=== PATIENT | male | born 1980 | race Caucasian/White ===

== ENCOUNTER 2017-08-16 13:11 | Emergency (ER) | payer OTHER ==
[~2017-08-16] VITALS: Ht 177.8 cm; Wt 68.0 kg
--- NOTE | 2017-08-16 13:26 | ED GI/GU/ABDOMINAL COMPLAINT ---
History of Present Illness General Chief Complaint: Nausea, Vomiting, Diarrhea Stated Complaint: SENT BY WALK IN FOR VOMITING Source: patient Exam Limitations: no limitations Vital Signs & Intake/Output Vital Signs & Intake/Output Vital Signs Date Time Temp Pulse Resp B/P B/P Pulse O2 O2 Flow FiO2 Mean Ox Delivery Rate 08/16 1606 98.7 69 18 122/84 95 Room Air 08/16 1319 96.5 80 18 154/94 96 Room Air Allergies Uncoded Allergies: HAYFEVER (04/08/12) Reconcile Medications Dicyclomine HCl 10 MG CAPSULE 1 CAP PO TID pain Purdy Carbonate 300 MG CAPSULE 1 CAP PO TID MENTAL HEALTH (Reported) Methylphenidate Hydrochloride (Ritalin) 10 MG TABLET 1 TAB PO BID MENTAL HEALTH (Reported) Ondansetron (Zofran Odt) 4 MG TAB.RAPDIS 1 TAB SL TID nausea Promethazine HCl 25 MG TABLET 1 TAB PO Q6P PRN nausea Triage Note: PT SENT BY WALK IN CLINIC WENT TO CLINIC ON SATURDAY AND WAS PUT ON ABX FOR EYE INFECTION. PT STATES HE WENT AGAIN TODAY FOR N/V/D SINCE YESTERDAY AND WAS SENT TO ED. Triage Nurses Notes Reviewed? yes Onset: Abrupt Duration: day(s): (4) Timing: recent history Location: right upper quadrant Radiation: no radiation HPI: 37-year-old male sent him walking clinic for further evaluation. 4 days ago this past Saturday he was seen for infection in his left eye. Patient was placed in Augmentin. Later that night he started to experience fever chills body aches with associated vomiting. He then started to experience diarrhea. The symptoms have been intermittent and persistent for the last few days. He went back to the walk-in clinic. He was then sent here for further evaluation. Denies any fever. He admits to some intermittent right upper abdominal pain. Denies any other associated symptoms. Comes in for further evaluation. s. Past History Travel History Traveled to [place] past 21 day No Medical History Any Pertinent Medical History? see below for history Psychiatric: bipolar disease Surgical History Surgical History: hernia repair-inguinal Psychosocial History What is your primary language Kittitian Tobacco Use: Current Daily Use Daily Tobacco Use Amount/Type: => 5 Cigarettes daily ETOH Use: heavy use Illicit Drug Use: marijuana Family History Hx Contributory? No Review of Systems Review of Systems Constitutional: Reports: see HPI. EENTM: Reports: no symptoms. Respiratory: Reports: no symptoms. Cardiovascular: Reports: no symptoms. GI: Reports: see HPI. Genitourinary: Reports: no symptoms. Musculoskeletal: Reports: no symptoms. Skin: Reports: no symptoms. Neurological/Psychological: Reports: no symptoms. Hematologic/Endocrine: Reports: no symptoms. Immunologic/Allergic: Reports: no symptoms. All Other Systems: Reviewed and Negative Physical Exam Physical Exam General Appearance: well developed/nourished, alert, awake, mild distress Head: atraumatic, normal appearance Eyes: Bilateral: normal appearance. Ears, Nose, Throat, Mouth: hearing grossly normal, moist mucous membrane Neck: normal inspection Respiratory: normal breath sounds, no respiratory distress Cardiovascular: regular rate/rhythm Gastrointestinal: soft, NEGATIVE HAQ'S Back: normal inspection Extremities: normal range of motion Neurologic/Psych: awake, alert, oriented x 3, normal gait Skin: intact, normal color Core Measures ACS in differential dx? No Sepsis Present: No Sepsis Focused Exam Completed? No Progress Differential Diagnosis: appendicitis, biliary colic, cholecystitis, diverticulitis, gastritis, hepatitis, hernia, ischemic bowel, inflamm bowel dis, pancreatitis, peptic ulcer, PUD/GERD, perforated viscous, SBO Plan of Care: Orders Procedure Date/time Status Add-on Test (ER Only) 08/16 1519 Active EKG 08/16 1519 Active RAPID VIRAL INFLUENZA A 08/16 1442 Complete TROPONIN LEVEL 08/16 1340 Complete URINALYSIS 08/16 1325 Complete LIPASE 08/16 1325 Complete LITHIUM 08/16 1325 Complete LACTIC ACID 08/16 1325 Complete COMPREHENSIVE METABOLIC PANEL 08/16 1325 Complete CBC WITHOUT DIFFERENTIAL 08/16 1325 Complete Laboratory Tests 08/16/17 1625: Lactic Acid Cancelled 08/16/17 1340: Anion Gap 15, Estimated GFR > 60, BUN/Creatinine Ratio 20.0, Glucose 136 H, Lactic Acid 1.1, Calcium 9.7, Total Bilirubin 0.6, AST 23, ALT 46, Alkaline Phosphatase 53, Troponin I < 0.01, Total Protein 7.2, Albumin 4.5, Globulin 2.7, Albumin/Globulin Ratio 1.7, Lipase 29, CBC w Diff NO MAN DIFF REQ, RBC 5.82, MCV 76.6 L, MCH 24.9 L, MCHC 32.5 L, RDW 13.5, MPV 7.8, Gran % 78.6 H, Lymphocytes % 14.7 L, Monocytes % 6.1, Eosinophils % 0.3, Basophils % 0.3, Absolute Granulocytes 6.1, Absolute Lymphocytes 1.1 L, Absolute Monocytes 0.5, Absolute Eosinophils 0, Absolute Basophils 0, Purdy < 0.2 L, Urinalysis HEAVY H, Urine Color YEL, Urine Clarity HAZY H, Urine pH 8.5 H, Ur Specific [place] 1.015, Urine Protein 30 H, Urine Ketones 15 H, Urine Nitrite NEG, Urine Bilirubin NEG, Urine Urobilinogen 0.2, Ur Leukocyte Esterase NEG, Ur Microscopic SEDIMENT EXAMINED, Urine RBC 1-3, Urine WBC RARE, Ur Epithelial Cells RARE, Urine Hemoglobin NEG, Urine Glucose NEG Microbiology 08/16 1444 NASOPHARYN: Influenza Virus A & B Rapid Smear - COMP Diagnostic Imaging: Viewed by Me: Ultrasound. Discussed w/RAD: Ultrasound. Radiology Impression: PATIENT: NATALIE GARCIA PRESENT AGE: 37 PATIENT ACCOUNT NO: [id number] : 82 LOCATION: [facility] ORDERING PHYSICIAN: Matteo MCKEON SERVICE DATE: 08/16/17 EXAM TYPE : US - US-LIMITED ABDOMEN EXAMINATION: US ABDOMEN LIMITED CLINICAL INFORMATION: Right upper quadrant pain. COMPARISON: None TECHNIQUE: Real-time imaging of the right upper quadrant abdominal viscera. FINDINGS: PANCREAS: Normal. LIVER: Diffuse fatty infiltration with focal fatty sparing in the region of the gallbladder fossa. No suspicious liver lesions. No biliary ductal dilatation. GALLBLADDER: Normal. The gallbladder is physiologically distended without evidence of stones, sludge, polyps, wall thickening or pericholecystic fluid. COMMON BILE DUCT: Normal in caliber measuring 0.5 cm in diameter. RIGHT KIDNEY: Normal. No hydronephrosis. No renal calculi or focal parenchymal lesions. The kidney measures 10.7 cm in maximum dimension. FREE FLUID: None. IMPRESSION: Diffuse fatty infiltration of the liver. No gallstones or evidence of cholecystitis. DICTATED BY: Kurtis Mcgowan MD DATE/TIME DICTATED:08/16/171444 IT PROGRAM ENGAGEMENT DIRECTOR:TONY DATE/TIME TRANSCRIBED:08/16/171444 CONFIDENTIAL, DO NOT COPY WITHOUT APPROPRIATE AUTHORIZATION. <Electronically signed in Other Vendor System> SIGNED BY: Juan M LAYNEKurtis 08/16/17 5651 Initial ED EKG: rate (65), sinus arrhythmia Departure Departure Disposition: HOME OR SELF CARE Condition: Stable Clinical Impression Primary Impression: Viral syndrome Referrals: Patient Has No Primary Care Dr (PCP/Family) Additional Instructions: Take Zofran, promethazine, and Bentyl as prescribed. Rest. Drink plenty fluids. Return if any concerns worsening symptoms. Please go over all results of today's visit with your primary care doctor. Contact your primary care doctor to let them know you were here in the emergency room. There may be nonspecific findings which may not be related to your visit today here in the emergency room but may require further evaluation and chronic monitoring by your primary care doctor. If you had a laceration today the chance of foreign body always remains. You should follow-up with your primary care doctor for recheck in 3-5 days for a wound check. If you had an x-ray done there is a chance that a fracture could have been missed on initial read and you should follow-up with your primary care doctor for repeat x-rays if symptoms persist. If your blood pressure was elevated here in the emergency room please have rechecked by [facility] primary care doctor within the next 48. If you were prescribed a narcotic here in the emergency room or any type of controlled substances you're not allowed to drive while taking this medication or operate any type of heavy machinery. Narcotics can make you feel lightheaded dizziness nausea and can cause constipation. You may need to picker operator a stool softener. Thank you for choosing [facility] emergency room. Please return to the emergency room immediately if you have any other concerns worsening of symptoms. Departure Forms: Customer Survey General Discharge Information Prescriptions: Current Visit Scripts Ondansetron (Zofran Odt) 1 TAB SL TID #15 TAB Promethazine HCl 1 TAB PO Q6P PRN nausea #30 TAB Dicyclomine HCl 1 CAP PO TID #20 CAP Comments 08/16/2017 5:27:49 PM Patient feels better after medications. Patient felt worse after Reglan. No signs of anaphylaxis. After the Phenergan and Benadryl his symptoms improved. Tolerating oral liquids. Symptoms are most consistent with viral illness. Patient understands and agrees with plan of care. Reevaluated multiple times. Safe for discharge at this time. Continue supportive measures at home.
[2017-08-16 13:54] LABS: ABSOLUTE BASOPHIL COUNT 0 /CUMM (0.0-0.2); ABSOLUTE EOSINOPHIL COUNT 0 /CUMM (0.0-0.7); ABSOLUTE GRANULOCYTE CT 6.1 /CUMM (1.4-6.5); ABSOLUTE LYMPH COUNT 1.1 /CUMM (1.2-3.4); ABSOLUTE MONOCYTE COUNT 0.5 /CUMM (0.10-0.60); BASOPHIL % 0.3 % (0.0-2.0); EOSINOPHIL % 0.3 % (0-5); GRANULOCYTE % 78.6 % (42.2-75.2); HEMATOCRIT 44.6 % (42-52); MEAN CORPUSCULAR HGB 24.9 PG (27.0-31.0); MEAN CORPUSCULAR HGB CONC 32.5 G/DL (33.0-37.0); MEAN CORPUSCULAR VOLUME 76.6 FL (80.0-94.0); MEAN PLATELET VOLUME 7.8 FL (7.4-10.4); PLATELET COUNT 304 /CUMM (130-400); RBC DISTRIBUTION WIDTH 13.5 % (11.5-14.5); RED BLOOD CELL CT 5.82 /CUMM (4.70-6.10); WHITE BLOOD CELL COUNT 7.8 /CUMM (4.8-10.8)
[2017-08-16 14:13] LABS: LITHIUM < 0.2 mmol/L (0.6-1.2)
[2017-08-16] MEDS ORDERED: LITHIUM CARBON300 M4 PO (14:13)
[2017-08-16] MEDS ORDERED: RITALIN10 MG PO (14:13)
--- NOTE | 2017-08-16 14:55 | ULTRASOUND REPORT ---
EXAMINATION: US ABDOMEN LIMITED CLINICAL INFORMATION: Right upper quadrant pain. COMPARISON: None TECHNIQUE: Real-time imaging of the right upper quadrant abdominal viscera. FINDINGS: PANCREAS: Normal. LIVER: Diffuse fatty infiltration with focal fatty sparing in the region of the gallbladder fossa. No suspicious liver lesions. No biliary ductal dilatation. GALLBLADDER: Normal. The gallbladder is physiologically distended without evidence of stones, sludge, polyps, wall thickening or pericholecystic fluid. COMMON BILE DUCT: Normal in caliber measuring 0.5 cm in diameter. RIGHT KIDNEY: Normal. No hydronephrosis. No renal calculi or focal parenchymal lesions. The kidney measures 10.7 cm in maximum dimension. FREE FLUID: None. IMPRESSION: Diffuse fatty infiltration of the liver. No gallstones or evidence of cholecystitis.
[2017-08-16 16:06] VITALS: BP 122/84
[2017-08-16] MEDS ORDERED: PROMETHAZINE HC25 M3 PO (16:57)
[2017-08-16] MEDS ORDERED: ZOFRAN ODT4 M1 SL (16:57)
[2017-08-16] MEDS ORDERED: DICYCLOMINE HCL10 M1 PO (16:57)
== END 2017-08-16 17:10 ==
LOC: ERH 13:11
PROVIDERS: Physician Assistant Medical
DX: B34.9 Viral infection, unspecified (principal)
CPT/HCPCS: 81001; 87804; 87804-59; 93005; 93010; 96372; 96374; 96375; J1200; J1885; J2405; J2550; J2765